=== PATIENT | male | born 1995 | race Caucasian/White ===

== ENCOUNTER 2020-06-15 22:19 | Emergency (ER) | payer OTHER ==
[~2020-06-15] VITALS: Ht 172.7 cm; Wt 72.6 kg
--- NOTE | 2020-06-15 22:31 | NUR ---
PT BIBRA FROM THE STREETS C/O ETOH. PT INCOHERENT AND DELIRIOUS, RESPIRATIONS EVEN AND UNLABORED ON RA W/ NAD NOTED. PT CONNECTED TO THE NETWORK [employer] IN[employer] AND POX. CALL LIGHT WITHIN REACH
--- NOTE | 2020-06-15 22:33 | NUR ---
URINE COLLECTED AND SENT TO LAB
--- NOTE | 2020-06-16 01:47 | NUR ---
PT ASLEEP IN BED. VSS. NO ACUTE DISTRESS NOTED. SITTER AT BEDSIDE FOR SAFETY
--- NOTE | 2020-06-16 03:13 | NUR ---
PT RESTING COMFORTABLY IN BED. VSS. NO ACUTE DISTRESS NOTED. SITTER AT BEDSIDE FOR SAFETY
--- NOTE | 2020-06-16 04:58 | NUR ---
Patient is resting comfortably in bed. Easily aroused. VSS.
--- NOTE | 2020-06-16 05:40 | NUR ---
PT ROADTESTED. PT AMBULATORY W/ STEADY GAIT
--- NOTE | 2020-06-16 05:55 | NUR ---
Patient discharged to home in stable condition. Written and verbal after care instructions given. Patient verbalizes understanding of instruction.pt. ambulatory with a steady gait.
[2020-06-16 05:58] VITALS: BP 106/84
== END 2020-06-16 05:59 | disposition home or self-care (01) ==
LOC: ER 22:20
DX: F10.129 Alcohol abuse with intoxication, unspecified (principal); Y90.9 Presence of alcohol in blood, level not specified

== ENCOUNTER 2022-07-17 00:07 | Emergency (ER) | payer OTHER ==
[~2022-07-17] VITALS: Ht 172.7 cm; Wt 85.3 kg
[2022-07-17 00:20] VITALS: BP 136/77
[2022-07-17 01:55] LABS: BASOPHILS # (AUTO) 0.1 K/uL (0.0-0.2); BASOPHILS % (AUTO) 0.6 % (0.0-2.0); EOSINOPHILS % (AUTO) 0.7 % (0.0-6.0); HEMATOCRIT 42 % (39-51); HEMOGLOBIN 14.2 g/dL (13.5-17.5); LYMPHOCYTES % (AUTO) 42.1 % (20.0-44.0); MEAN CORPUSCULAR HGB CONC 34 g/dl (31.0-36.0); MEAN CORPUSCULAR VOLUME 88 fL (80-96); MONOCYTES # (AUTO) 0.6 K/uL (0.1-1.30); MONOCYTES % (AUTO) 5.9 % (2.0-12.0); NEUTROPHILS # (AUTO) 4.9 K/uL (1.8-8.9); NEUTROPHILS % (AUTO) 50.7 % (43.0-81.0); PLATELET COUNT (AUTO) 314 K/uL (150-450); RED BLOOD CELL COUNT(AUTO) 4.72 MIL/uL (4.5-6.0); WHITE BLOOD COUNT (AUTO) 9.6 K/uL (4.3-11.0)
[2022-07-17 02:16] LABS: CALCIUM, SERUM 8.9 mg/dL (8.5-10.1); CREATININE 0.8 mg/dL (0.6-1.3); POTASSIUM 3.6 mmol/L (3.5-5.1)
[2022-07-17 02:23] LABS: ALBUMIN 4.3 g/dL (3.4-5.0); BILIRUBIN,DIRECT 0.1 mg/dL (0.0-0.2); BILIRUBIN,TOTAL 0.3 mg/dL (0.2-1.0)
--- NOTE | 2022-07-17 04:39 | NUR ---
Patient discharged to home in stable condition. Written and verbal after care instructions given. Patient verbalizes understanding of instruction.
== END 2022-07-17 04:39 | disposition home or self-care (01) ==
LOC: ER 00:13
DX: F10.129 Alcohol abuse with intoxication, unspecified (principal); Z60.2 Problems related to living alone; Y90.6 Blood alcohol level of 120-199 mg/100 ml
CPT/HCPCS: 36415; 80048-TC; 80076-TC; 85025-TC; G0480